=== PATIENT | male | born 1990 | race Two or more races ===

== ENCOUNTER 2023-10-06 23:57 | Emergency (ER) | payer SELFPAY ==
[2023-10-07] MEDS ORDERED: Diphtheria,Pertussis(Acell),Tetanus Vaccine 0.5 ML Syringe IM ONE (00:07)
[2023-10-07] MEDS ORDERED: Cephalexin 500 MG Cap PO ONE (00:07)
[2023-10-07] MEDS ORDERED: Lidocaine 1% 5 ML VIAL INJECT ONE (00:07)
[2023-10-07] MEDS ORDERED: Bacitracin Oint 1 GM U/D Packet TOP STA (00:54)
== END 2023-10-07 01:03 | disposition home or self-care (01) ==
LOC: MW.ED 23:57
DX: S91.111A Laceration without foreign body of right great toe without damage to nail, initial encounter (principal); F17.210 Nicotine dependence, cigarettes, uncomplicated; Z23 Encounter for immunization; W26.0XXA Contact with knife, initial encounter
CPT/HCPCS: 12002; 90471; 90715; 99283; A9270; J3490

== ENCOUNTER 2023-10-16 16:36 | Emergency (ER) | payer SELFPAY | END 2023-10-16 17:06 | disposition home or self-care (01) | LOC: MW.ED 16:36 | DX: Z53.21 Procedure and treatment not carried out due to patient leaving prior to being seen by health care provider (principal) | CPT/HCPCS: 99281 ==